=== PATIENT | female | born 1990 | race Caucasian/White ===

== ENCOUNTER 2023-08-18 20:39 | Emergency (ER) | payer OTHER, SELFPAY ==
[2023-08-18 20:42] VITALS: BP 131/84; PULSE 98; RESP 18; TEMP 37.1; O2SAT 99; BMI 40.7
--- NOTE | 2023-08-18 20:55 | ED.ABDPAIN1 ---
HPI - Abdominal Pain General Chief Complaint: Abdominal Pain Stated Complaint: Abdominal Pain Time Seen by Provider: 08/18/23 20:51 Source: patient Mode of arrival: Wheelchair History of Present Illness HPI narrative: The patient presented to us with left lower quadrant abdominal pain she is almost pointing to the left mid abdomen and she mentioned that she earlier had some back pain, the pain is spasmodic and comes and goes and she mentioned that is associated with no nausea or vomiting She is in her menstrual period right now She denies any burning with urination or any frequency of urination Related Data Home Medications Medication Instructions Recorded Confirmed bupropion HCl 150 mg 24 hr tablet, mg PO 08/18/23 extended release bupropion HCl 300 mg 24 hr tablet, mg PO 08/18/23 extended release hydroxyzine pamoate 50 mg capsule mg 08/18/23 liraglutide 0.6 mg/0.1 mL (18 mg/3 mg subcut 08/18/23 mL) subcutaneous pen injector (iCurrent 3-Kvng) quetiapine 100 mg tablet mg 08/18/23 topiramate 100 mg tablet mg 08/18/23 topiramate 200 mg tablet mg 08/18/23 Previous Rx's Medication Instructions Recorded bisacodyl 5 mg tablet,delayed 5 mg PO DAILY PRN constipation #10 08/18/23 release (Dulcolax (bisacodyl)) tabs dicyclomine 20 mg tablet 20 mg PO QID PRN abdominal pain 08/18/23 #14 tabs famotidine 20 mg tablet (Pepcid) 20 mg PO BID #20 tabs 08/18/23 nitrofurantoin 100 mg PO BID 5 days #10 caps 08/18/23 monohydrate/macrocrystals 100 mg capsule (Macrobid) Allergies Allergy/AdvReac Type Severity Reaction Status Date / Time No Known Drug Allergies Allergy Verified 08/18/23 20:48 Review of Systems ROS Status of ROS 10 or more systems reviewed and unremarkable except as noted in history and below [facility] Social History Smoking status: Current every day smoker Exam Narrative Exam Narrative: Nurses notes and vital signs reviewed and patient is not hypoxic. General: Well-appearing and in no apparent distress. Skin: Warm, dry, no pallor noted. No rash. Head: Normocephalic, atraumatic. Neck: Supple, non-tender. Eye: Pupils are equal, round and EOMI. No scleral icterus. Ears, Nose, Mouth, and Throat: TM are clear, no nasal mucosal hypertrophy. Oral mucosa is moist, no posterior oropharynx erythema, uvula is mid-line Cardiovascular: Regular Rate and Rhythm without murmur, gallop or rub. Respiratory: No accessory muscle use or respiratory distress. Lungs are clear to auscultation, no wheezing, rales or rhonchi Chest Wall: no tenderness Back: No midline thoracic or lumbar vertebral tenderness. No CVA tenderness Musculoskeletal: normal ROM, no calf or popliteal tenderness, no lower extremity edema/swelling GI: Abdomen is soft, non-distended. Normal bowel sounds. No masses appreciated. No tenderness to palpation. No rebound, guarding, or rigidity noted. Neurological: A&O x4. No cranial nerve dysfunction observed. No truncal ataxia. Moves all extremities. Sensation intact. Psychiatric: Cooperative and interactive. Normal mood and affect. Constitutional Vital Signs, click to edit/add: Last Vital Signs Temp 98.7 F 08/18/23 20:42 Pulse 98 H 08/18/23 20:42 Resp 18 08/18/23 20:42 BP 131/84 08/18/23 20:42 Pulse Ox 99 08/18/23 20:42 O2 Del Method Room Air 08/18/23 20:42 Course Vital Signs Vital signs: Vital Signs Temperature 98.7 F 08/18/23 20:42 Pulse Rate 98 H 08/18/23 20:42 Respiratory Rate 18 08/18/23 20:42 Blood Pressure 131/84 08/18/23 20:42 Pulse Oximetry 99 08/18/23 20:42 Oxygen Delivery Method Room Air 08/18/23 20:42 Temperature 98.7 F 08/18/23 20:42 Pulse Rate 98 H 08/18/23 20:42 Respiratory Rate 18 08/18/23 20:42 Blood Pressure 131/84 08/18/23 20:42 Pulse Oximetry 99 08/18/23 20:42 Oxygen Delivery Method Room Air 08/18/23 20:42 MDM - Abdominal Pain MDM Narrative Medical decision making narrative: The patient CBC showed no acute pathology the patient chemistry showed some acute kidney injury she was provided with the supportive care in the ER she did have some nausea and vomiting while she was in the ER The patient also mentioned that she lives in a sober house and she have a history of alcohol abuse and she is in rehab right now The patient was treated in the ER also with Bentyl after the CAT scan shows that she have constipation and a good stool burden Hydration was instructed to follow-up for the possible acute kidney injury and also constipation management with Dulcolax the patient also was provided with Bentyl for supportive care and Pepcid for possible gastritis as she is complaining of left upper quadrant The patient instructed to come back in case of any new symptoms or concerns The patient is to follow up with primary care physician in next 2-3 days or to return to the emergency department should any of the signs or symptoms worsen or new symptoms develop. The patient agrees with the following Diagnosis and Treatment plan and the patient will be discharged home. Lab Data Labs: Lab Results 08/18/23 08/18/23 Range/Units 21:35 21:40 WBC 8.9 (4.0-11.0) 10^3/uL RBC 4.25 (4.20-5.40) 10^6/uL Hgb 12.7 (12.0-16.0) g/dL Hct 37.9 (36.0-48.0) % MCV 89.2 (81.0-99.0) fL MCH 29.9 (26.7-34.0) pg MCHC 33.5 (29.9-35.2) g/dL RDW 12.7 (11.0-15.0) % Plt Count 274 (150-450) 10^3/uL MPV 8.5 L (9.5-13.5) fL Neut % (Auto) 53.2 (43.0-75.0) % Lymph % (Auto) 37.7 (20.5-60.0) % [place] % (Auto) 7.5 (1.7-12.0) % Eos % (Auto) 0.9 (0.9-7.0) % Baso % (Auto) 0.4 (0.2-2.0) % Neut # (Auto) 4.7 (1.4-6.5) 10^3/uL Lymph # (Auto) 3.4 (1.2-3.8) 10^3/uL [place] # (Auto) 0.7 (0.3-0.8) 10^3/uL Eos # (Auto) 0.1 (0.0-0.7) 10^3/uL Baso # (Auto) 0.0 (0.0-0.1) 10^3/uL Abs Immat Gran (auto) 0.03 (0.00-0.03) 10^3/uL Imm/Tot Granulo (auto) 0.3 (0.0-0.5) % Sodium 141 (136-145) mmol/L Potassium 3.3 L (3.5-5.1) mmol/L Chloride 107 (98-107) mmol/L Carbon Dioxide 22.0 (21.0-32.0) mmol/L Anion Gap 15.3 BUN 17.0 (7.0-18.0) mg/dL Creatinine 1.39 H (0.55-1.02) mg/dL Est GFR ( Amer) 53 L (>=60) Est GFR (Non-Af Amer) 44 L (>=60) BUN/Creatinine Ratio 12.2 Glucose 93 (74-106) mg/dL Calcium 9.0 (8.5-10.1) mg/dL Total Bilirubin 0.3 (0.2-1.0) mg/dL AST 11 L (15-37) U/L ALT 17 (14-59) U/L Alkaline Phosphatase 54 (46-116) U/L Total Protein 7.3 (6.4-8.2) g/dL Albumin 3.9 (3.4-5.0) g/dL Globulin 3.4 g/dL Albumin/Globulin Ratio 1.1 Serum HCG, Qual Negative (NEGATIVE) Urine Color Yellow (YELLOW) Urine Clarity Clear (CLEAR) Urine pH 5.5 (5.0-9.0) Ur Specific [place] >=1.030 A (1.005-1.025) Urine Protein Negative (NEG/TRACE) mg/dL Urine Glucose (UA) Negative (NEGATIVE) mg/dL Urine Ketones Negative (NEGATIVE) mg/dL Urine Occult Blood Negative (NEGATIVE) Urine Nitrite Negative (NEGATIVE) Urine Bilirubin Negative (NEGATIVE) Urine Urobilinogen 0.2 (0.2-1.0) EU/dL Ur Leukocyte Esterase Negative (NEGATIVE) Discharge Plan Discharge Chief Complaint: Abdominal Pain Clinical Impression: Gastritis, Cystitis, Constipation, Acute kidney failure Patient Disposition: Home, Self-Care Time of Disposition Decision: 23:12 Condition: Good Prescriptions / Home Meds: New bisacodyl [Dulcolax (bisacodyl)] 5 mg tablet,delayed release (DR/EC) 5 mg PO DAILY PRN (Reason: constipation) Qty: 10 0RF famotidine [Pepcid] 20 mg tablet 20 mg PO BID Qty: 20 0RF nitrofurantoin monohyd/m-cryst [Macrobid] 100 mg capsule 100 mg PO BID 5 Days Qty: 10 0RF Rx Instructions: must administer with a meal/food dicyclomine 20 mg tablet 20 mg PO QID PRN (Reason: abdominal pain) Qty: 14 0RF No Action hydroxyzine pamoate 50 mg capsule quetiapine 100 mg tablet topiramate 200 mg tablet topiramate 100 mg tablet bupropion HCl 300 mg tablet extended release 24 hr PO bupropion HCl 150 mg tablet extended release 24 hr PO Victoza 3-Kvng 0.6 mg/0.1 mL (18 mg/3 mL) pen injector SUBCUT Instructions: Gastritis (ED), Constipation (ED), Acute Kidney Injury (DC) Stand Alone Forms: Portal Instructions Referrals: Physician,Non-Staff, MD [Primary Care Provider] - 1 week
--- NOTE | 2023-08-18 21:24 | CT_ITS ---
[facility] [id number] Patient Name: JUJU ANAYA MRN: [id number] date: 1990 Sex: F Assigned Patient Location: ER Current Patient Location: ER Accession/Order Number: [id number] Exam Date: 08/18/2023 22:10 Report Date: 08/18/2023 22:36 At the request of: SILAS EDUARDO Procedure: CT abdomen pelvis wo con EXAMINATION: CT abdomen pelvis wo con, 08/18/2023 7:10 PM PDT HISTORY: LLQ pain COMPARISON: None. TECHNIQUE: CT scan of the abdomen and pelvis was performed without IV contrast. CT dose reduction technique was used, including Automated Exposure Control. FINDINGS: Lung: No significant finding. Liver: No significant finding. Gallbladder: No significant finding. Spleen: No significant finding. Pancreas: No significant finding. Adrenal glands: No significant finding. Kidneys, ureters and bladder: No renal/urinary tract calculi. Bladder is decompressed with circumferential wall thickening. Bowel: Normal appendix. No evidence of bowel obstruction. Colonic stool burden. Peritoneum/retroperitoneum: No significant finding. Lymph nodes: No significant finding. Vessels: No significant finding. Body wall: No significant finding. Reproductive: IUD noted. Bones: No significant finding. CT/CT abdomen pelvis wo con IMPRESSION: Bladder wall thickening, correlate for cystitis. Colonic stool burden. Normal appendix. No renal/urinary tract calculi. Electronically authenticated by: MARNI VERONICA Date: 08/18/2023 22:36
[2023-08-18] MEDS: 0.9 % SODIUM CHLORIDE 1,000 ML 1000 ML IV (21:40)
[2023-08-18] MEDS: KETOROLAC TROMETHAMINE 30 MG/ML VIAL 15 MG IVP (21:43)
[2023-08-18] MEDS: FAMOTIDINE/PF 20 MG/2 ML VIAL IV (21:43)
[2023-08-18 21:49] LABS: Basophils Percent Auto 0.4 % (0.2-2.0); Eosinophils Absolute Auto 0.1 10^3/uL (0.0-0.7); Eosinophils Percent Auto 0.9 % (0.9-7.0); Hematocrit 37.9 % (36.0-48.0); Hemoglobin 12.7 g/dL (12.0-16.0); Immature Granulocytes Abs Auto 0.03 10^3/uL (0.00-0.03); Immature Granulocytes Pct Auto 0.3 % (0.0-0.5); Lymphocytes Absolute Auto 3.4 10^3/uL (1.2-3.8); Lymphocytes Percent Auto 37.7 % (20.5-60.0); Mean Corpuscular HGB Conc 33.5 g/dL (29.9-35.2); Mean Corpuscular Hemoglobin 29.9 pg (26.7-34.0); Mean Corpuscular Volume 89.2 fL (81.0-99.0); Mean Platelet Volume 8.5 fL (9.5-13.5); Monocytes Absolute Auto 0.7 10^3/uL (0.3-0.8); Monocytes Percent Auto 7.5 % (1.7-12.0); Neutrophils Absolute Auto 4.7 10^3/uL (1.4-6.5); Neutrophils Percent Auto 53.2 % (43.0-75.0); Platelet Count 274 10^3/uL (150-450); Red Blood Count 4.25 10^6/uL (4.20-5.40); Red Cell Distribution Width 12.7 % (11.0-15.0); White Blood Count 8.9 10^3/uL (4.0-11.0)
[2023-08-18 21:53] LABS: Bilirubin Urine NEGATIVE (NEGATIVE); Blood Urine NEGATIVE (NEGATIVE); Clarity Urine CLEAR (CLEAR); Color Urine YELLOW (YELLOW); Glucose Urine UA NEGATIVE (NEGATIVE); Ketones Urine NEGATIVE (NEGATIVE); Leukocyte Esterase Urine NEGATIVE (NEGATIVE); Nitrite Urine NEGATIVE (NEGATIVE); Protein Urine NEGATIVE (NEG/TRACE); Specific Gravity Urine >=1.030 (1.005-1.025); Urobilinogen Urine 0.2 EU/dL (0.2-1.0); pH Urine 5.5 (5.0-9.0)
[2023-08-18 21:55] LABS: Urine Microscopic Indicated NO
[2023-08-18 22:02] LABS: HCG Qualitative NEGATIVE (NEGATIVE)
[2023-08-18 22:10] LABS: Alanine Aminotransferase 17 U/L (14-59); Albumin Globulin Ratio 1.1; Albumin Level 3.9 g/dL (3.4-5.0); Alkaline Phosphatase 54 U/L (46-116); Anion Gap 15.3; Aspartate Amino Transferase 11 U/L (15-37); BUN Creatinine Ratio 12.2; Bilirubin Total 0.3 mg/dL (0.2-1.0); Chloride 107 mmol/L (98-107); Estimated GFR (African America 53 (>=60); Estimated GFR (Non-African Ame 44 (>=60); Globulin 3.4 g/dL; Glucose 93 mg/dL (74-106); Potassium 3.3 mmol/L (3.5-5.1); Sodium 141 mmol/L (136-145); Total Protein 7.3 g/dL (6.4-8.2)
[2023-08-18] MEDS: ONDANSETRON PF 4 MG/2 ML VIAL IV (22:34)
[2023-08-18] MEDS: DICYCLOMINE HCL 20 MG/2 ML VIAL IM (23:21)
== END 2023-08-18 23:34 | disposition home or self-care (01) ==
PROVIDERS: Emergency Provider Emergency Medicine
DX: K29.70 Gastritis, unspecified, without bleeding (principal); N17.9 Acute kidney failure, unspecified; K59.00 Constipation, unspecified; N30.90 Cystitis, unspecified without hematuria; Z79.899 Other long term (current) drug therapy; F17.210 Nicotine dependence, cigarettes, uncomplicated
CPT/HCPCS: 36415; 74176; 80053; 81003; 84703; 85025; 96361; 96372; 96374; 96375; 99285; J0500